=== PATIENT | male | born 1995 ===

== ENCOUNTER 2018-02-21 12:54 | Emergency (ER) | payer OTHER ==
[2018-02-21 12:54] VITALS: BMI 21.9
[2018-02-21 14:05] LABS: BASO % 0.6 % (0.0-2.0); EOS % 1.1 % (0.0-4.0); HEMOGLOBIN 13.8 g/dL (12.0-18.0); LYMPH # 1.3 K/uL (1.0-4.3); LYMPH % 33.6 % (20.0-40.0); MEAN CELL VOLUME 83.6 fL (80.0-94.0); MEAN CORPUSCULAR HGB CONC 34.7 g/dL (33.0-37.0); MEAN PLATELET VOLUME 6.8 fL (7.2-11.7); MONO # 0.4 K/uL (0.0-0.8); MONO % 10.8 % (0.0-10.0); NEUT % 53.9 % (50.0-75.0); NRBC % 0.4 % (0.0-2.0); RBC 4.77 Mil/uL (4.40-5.90); RED CELL DISTRIBUTION WIDTH 13.1 % (11.5-14.5); WHITE BLOOD COUNT 3.7 K/uL (4.8-10.8)
[2018-02-21 14:22] LABS: ALB/GLOB RATIO 1.4 (1.0-2.1); ALT/SGPT 15 U/L (21-72); AST/SGOT 21 U/L (17-59); BLOOD UREA NITROGEN 12 mg/dL (9-20); CALCIUM 9.5 mg/dl (8.6-10.4); GFR AFRICAN-AMERICAN > 60; GFR NON-AFRICAN AMERICAN > 60; LIPASE 225 U/L (23-300)
--- NOTE | 2018-02-21 14:37 | C.PDOC ---
History Of Present Illness 22 year old male presents to the ED for evaluation of intermittent abdominal pain which began around one week ago. Patient describes his pain as a cramping sensation that is associated with nausea and a few episodes of diarrhea. Patient states diarrhea resolved 2 days ago. He reports symptoms are worse after eating. Patient has been taking Pepto-Bismol without relief. Patient denies fever, chills, dysuria, and hematuria. Time Seen by Provider: 02/21/18 13:24 Chief Complaint (Nursing): Abdominal Pain History Per: Patient History/Exam Limitations: no limitations Onset/Duration Of Symptoms: Days (one week ), Intermittent Episodes Current Symptoms Are (Timing): Still Present Location Of Pain/Discomfort: Diffuse Quality Of Discomfort: Cramping, "Pain" Associated Symptoms: Nausea, Diarrhea. denies: Fever, Chills Exacerbating Factors: Food Additional History Per: Patient Past Medical History Reviewed: Historical Data, Nursing Documentation, Vital Signs Vital Signs: Last Vital Signs Temp 98.5 F 02/21/18 14:44 Pulse 77 02/21/18 14:44 Resp 20 02/21/18 14:44 BP 118/65 02/21/18 14:44 Pulse Ox 99 02/21/18 15:38 - Medical History PMH: No Chronic Diseases Surgical History: No Surg Hx Family History: States: Unknown Family Hx - Social History Hx Alcohol Use: Yes Hx Substance Use: No - Immunization History Hx Tetanus Toxoid Vaccination: No Hx Influenza Vaccination: No Hx Pneumococcal Vaccination: No Review Of Systems Gastrointestinal: Positive for: Nausea, Abdominal Pain, Diarrhea Genitourinary: Negative for: Dysuria, Hematuria Physical Exam - Physical Exam Appears: Non-toxic, No Acute Distress Skin: Normal Color, Warm, Dry Head: Atraumatic, Normacephalic Eye(s): bilateral: Normal Inspection, EOMI Oral Mucosa: Moist Neck: Supple Chest: Symmetrical, No Deformity, No Tenderness Cardiovascular: Rhythm Regular, No Murmur Respiratory: Normal Breath Sounds, No Rales, No Rhonchi, No Wheezing Gastrointestinal/Abdominal: Soft, No Tenderness, No Guarding, No Rebound Extremity: Normal ROM, Capillary Refill (less than 2 seconds ) Neurological/Psych: Oriented x3, Normal Speech, Normal Cognition ED Course And Treatment - Laboratory Results Result Diagrams: 02/21/18 14:01 02/21/18 14:01 Lab Interpretation: No Acute Changes O2 Sat by Pulse Oximetry: 99 (on RA) Pulse Ox Interpretation: Normal Medical Decision Making Medical Decision Making: Impression: 22 year old male with abdominal pain. exam benign and patient is afebrile appears comfortable Plan: * Bloodwork * Urinalysis * Pepcid PO Progress: Bloodwork and Urinalysis ordered and reviewed, with no acute findings. Pepcid PO administered. On re-eval patient was sitting comfortably in no distress. He reports feeling well, no abdominal pain and he has no fever. I explained lab results to patient. He feels comfortable going home and is asking for work excuse for today. Patient stable for discharge Disposition Counseled Patient/Family Regarding: Diagnosis, Need For Followup - Disposition Referrals: [facility] [Outside] [facility] [Outside] Disposition: HOME/ ROUTINE Disposition Time: 14:35 Condition: STABLE Additional Instructions: Follow up with your primary medical doctor or clinic in 2-5 days for further evaluation. Take medications as prescribed. Return to the emergency department at any time if symptoms persist or worsen. Prescriptions: Pantoprazole [Protonix EC Tab] 20 mg PO DAILY #30 ect Instructions: Gastroenteritis (DC) Forms: Work Excuse - POA Present On Arrival: None - Clinical Impression Clinical Impression: Gastroenteritis - PA / GRANTS ADMINISTRATOR / Resident Statement MD/DO has reviewed & agrees with the documentation as recorded. - Scribe Statement The provider has reviewed the documentation as recorded by the Scribe (Leanne Serra) All medical record entries made by the Scribe were at my direction and personally dictated by me. I have reviewed the chart and agree that the record accurately reflects my personal performance of the history, physical exam, medical decision making, and the department course for this patient. I have also personally directed, reviewed, and agree with the discharge instructions and disposition.
[2018-02-21 14:44] VITALS: BP 118/65; PULSE 77; RESP 20; TEMP 98.5
[2018-02-21 14:46] LABS: URINE AMORPHOUS SEDIMENT RARE /ul (<OCC); URINE BACTERIA RARE (<OCC); URINE BILIRUBIN NEGATIVE (NEGATIVE); URINE BLOOD NEGATIVE (NEGATIVE); URINE CLARITY Hazy (Clear); URINE COLOR Yellow (YELLOW); URINE GLUCOSE (UA) NORMAL (Normal); URINE LEUKOCYTE ESTERASE NEG Leu/uL (Negative); URINE PROTEIN NEGATIVE (NEGATIVE); URINE UROBILINOGEN NORMAL mg/dL (0.2-1.0)
[2018-02-21 15:17] VITALS: O2SAT 99
== END 2018-02-21 15:02 | disposition home or self-care (01) ==
LOC: C.ER 12:54
DX: K52.9 Noninfective gastroenteritis and colitis, unspecified (principal)